=== PATIENT | male | born 1950 | race Caucasian/White ===

== ENCOUNTER 2022-08-06 00:32 | Emergency (ER) | payer BC ==
[~2022-08-06] VITALS: Ht 175.3 cm; Wt 76.2 kg
[2022-08-06 00:33] VITALS: BP_SYST 137
--- NOTE | 2022-08-06 00:56 | NUR ---
Patient to ER bed 07 to gown for evaluation. Side rails up. Report given to LOREE Gusman
--- NOTE | 2022-08-06 00:57 | NUR ---
patient brought in with complaining of cough x 5 days. reports he has coughing fits where he almost passes out. patient is also dm and reports sugars have been unstable. patient is currently on metformin. pain 0/10 hx of dm, htn, hld, hypothyroidism.
[2022-08-06] MEDS ORDERED: NACL 0.9% 1,000 ML IV ONE (01:00)
--- NOTE | 2022-08-06 01:00 | NUR ---
ER Dr. Small at bedside examining patient.
--- NOTE | 2022-08-06 01:00 | NUR ---
COVID/INFLUENZA SWAB COLLECTED AND SENT TO LAB.
[2022-08-06] MEDS ORDERED: ALBUTEROL SULFATE 0.083% 2.5 MG/3 ML VIAL.NEB INH ONE (01:15)
[2022-08-06 01:20] LABS: BASOPHILS % (AUTO) 0.4 % (0.0-2.0); HEMATOCRIT 40.7 % (36-54); HEMOGLOBIN 13.8 g/dL (14.0-18.0); LYMPHOCYTES # (AUTO) 0.9 K/uL (1.0-5.5); LYMPHOCYTES % (AUTO) 15.1 % (20.5-51.5); MEAN CORPUSCULAR HEMOGLOBIN 30 pg (27-31); MEAN CORPUSCULAR HGB CONC 34 % (32-36); MEAN CORPUSCULAR VOLUME 90 fL (79.0-98.0); MONOCYTES # (AUTO) 0.5 K/uL (0.0-1.0); MONOCYTES % (AUTO) 8.3 % (1.7-9.3); NEUTROPHILS # (AUTO) 4.5 K/uL (1.8-7.7); NEUTROPHILS % (AUTO) 76.2 % (40.0-70.0); PLATELET COUNT (AUTO) 260 K/uL (130-430); RED BLOOD CELL COUNT(AUTO) 4.55 MIL/uL (4.2-6.2); RED CELL DISTRIBUTION WIDTH 15.3 % (9.0-15.0); WHITE BLOOD COUNT (AUTO) 5.9 K/uL (4.8-10.8)
--- NOTE | 2022-08-06 01:20 | NUR ---
Assumed care as primary nurse. Patient awake and alert presenting today with c/o cough x 5 day. Denies any sob, or chest pain. VSS. IV initiated, IVF started. Awaiting RT for breathing tx. Will continue to monitor.
[2022-08-06 01:28] LABS: BILIRUBIN,URINE NEGATIVE (NEGATIVE); BLOOD, URINE NEGATIVE (NEGATIVE); CLARITY/URINE CLEAR (CLEAR); COLOR,URINE YELLOW (YELLOW); GLUCOSE,URINE 3+ (NEGATIVE); KETONES,URINE NEGATIVE (NEGATIVE); LEUKOCYTE ESTERASE ,URINE NEGATIVE (NEGATIVE); NITRITE, URINE POSITIVE (NEGATIVE); PH,URINE 5.5 (5.0-8.0); PROTEIN URINE NEGATIVE (NEGATIVE); UROBILINOGEN,URINE 0.2 (0.2-1.0)
[2022-08-06 01:35] LABS: ANION GAP 15 (5-15); CALCIUM 7.6 mg/dL (8.4-11.0); CHLORIDE 100 mmol/L (98-107); CREATININE 1.54 mg/dL (0.55-1.30); GLUCOSE 316 mg/dL (70-99); UREA NITROGEN, BLOOD 13 mg/dL (8-21)
[2022-08-06 01:37] LABS: RBC,URINE 0-3 /HPF (0-3)
[2022-08-06 01:38] LABS: BACTERIA,URINE FEW /HPF (None Seen); COARSE GRANULAR CASTS,URINE None Seen /LPF (None Seen)
[2022-08-06 01:42] LABS: ALANINE AMINOTRANSFERASE 34 U/L (12-78); ALBUMIN 3.2 g/dL (3.4-4.8); ASPARTATE AMINOTRANSFERASE 27 U/L (10-37); TOTAL BILIRUBIN 0.4 mg/dL (0.0-1.0)
[2022-08-06] MEDS ORDERED: cefTRIAXone 1 GM in D5W 50 ML IV ONE (01:45)
[2022-08-06] MEDS ORDERED: ALBMDI INH ×2 (01:56)
[2022-08-06] MEDS ORDERED: ACET-2634 PO ×2 (01:56)
[2022-08-06] MEDS ORDERED: INHA1EAC52 MC ×2 (01:56)
[2022-08-06] MEDS ORDERED: BENZ150C4 PO ×2 (01:56)
[2022-08-06] MEDS ORDERED: CIPR500T5 PO ×2 (01:56)
--- NOTE | 2022-08-06 02:00 | NUR ---
MD at bedside to discuss plan of care. Patient verbalized understanding. Cipro to be started. Will continue to monitor.
[2022-08-06] MEDS ORDERED: cefTRIAXone 1 GM VIAL ONE (02:16)
[2022-08-06] MEDS ORDERED: ACETAMINOPHEN 500 MG TABLET ONE (02:29)
[2022-08-06] MEDS ORDERED: ACETAMINOPHEN 500 MG TABLET PO ONE (02:30)
[2022-08-06 02:39] VITALS: BP_SYST 114
--- NOTE | 2022-08-06 02:41 | NUR ---
Patient given written and verbal discharge instructions and verbalizes understanding. ER MD discussed with patient the results and treatment provided. Patient in stable condition. ID arm band removed. IV catheter removed intact and dressing applied, no active bleeding. Rx of Tessalon Perles, Tylenol, Cipro, Albuterol given. Patient educated on pain management and to follow up with PMD. Pain Scale . Opportunity for questions provided and answered. Medication side effect fact sheet provided.
[2022-08-09] MEDS ORDERED: ALBMDI INH (12:39)
[2022-08-09] MEDS ORDERED: CIPR500T5 PO (12:39)
[2022-08-09] MEDS ORDERED: ACET-2634 PO (12:39)
[2022-08-09] MEDS ORDERED: BENZ150C4 PO (12:39)
[2022-08-09] MEDS ORDERED: INHA1EAC52 MC (12:39)
== END 2022-08-06 02:39 | disposition home or self-care (01) ==
LOC: SED 00:32
DX: U07.1 COVID-19 (principal); J40 Bronchitis, not specified as acute or chronic; N39.0 Urinary tract infection, site not specified; R53.83 Other fatigue; E11.9 Type 2 diabetes mellitus without complications; Z88.8 Allergy status to other drugs, medicaments and biological substances; Z79.899 Other long term (current) drug therapy
CPT/HCPCS: 80053; 81000; 82962; 85025; 87086; 84484; 36415; 93005; 71045; 94640; 99285; 96361; 96365; 87804 ×2; 87426; J0696; J7613; J7030